=== PATIENT | male | born 1970 | race Caucasian/White ===

== ENCOUNTER 2018-07-01 19:30 | Emergency (ER) | payer BC ==
[~2018-07-01] VITALS: Ht 175.3 cm; Wt 95.3 kg
[2018-07-01] MEDS ORDERED: ONDANSETRON PF 4 MG/2 ML VIAL. IV ONE (20:15)
--- NOTE | 2018-07-01 20:24 | EKG ---
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
[2018-07-01 20:27] LABS: BASO % 0 % (0-3); EOS # 0.2 x10^3/uL (0.0-0.7); EOS % 3 % (0-3); HEMATOCRIT 44.7 % (39.0-53.0); HEMOGLOBIN 15.4 g/dL (13.0-17.5); LYMPH % 33 % (24-48); MEAN CORPUSCULAR HEMOGLOBIN 31 pg (25-35); MEAN CORPUSCULAR HGB CONC 35 g/dL (31-37); MEAN CORPUSCULAR VOLUME 88 fL (79-100); MONO # 0.6 x10^3/uL (0.0-1.1); MONO % 10 % (0-9); NEUT # 3.4 x10^3uL (1.8-7.7); NEUT % 54 % (31-73); PLATELET COUNT 201 x10^3/uL (140-400); RED BLOOD COUNT 5.06 x10^6/uL (4.30-5.70); RED CELL DISTRIBUTION WIDTH 13.5 % (11.5-14.5); WHITE BLOOD COUNT 6.2 x10^3/uL (4.0-11.0)
[2018-07-01 20:42] LABS: CALCIUM 9.2 mg/dL (8.5-10.1); GFR 80.1; POTASSIUM 3.7 mmol/L (3.5-5.1)
[2018-07-01 20:48] LABS: ALBUMIN 4.2 g/dL (3.4-5.0); ALBUMIN/GLOBULIN RATIO 1.2 (1.0-1.7); TOTAL BILIRUBIN 0.4 mg/dL (0.2-1.0); TOTAL PROTEIN 7.6 g/dL (6.4-8.2)
--- NOTE | 2018-07-01 20:56 | RAD ---
Single view chest dated 07/01/2018. No comparison available. Clinical indication: Chest pain. FINDINGS: Single upright portable exam performed. Heart and mediastinal contours within normal limits. Lungs are somewhat hypoinflated but otherwise clear. No consolidation or pleural effusion. Minimal linear bands of increased density at both lung bases, likely scar or atelectasis. IMPRESSION: No acute radiographic abnormality. Electronically signed by: Sherif Delgado MD (07/01/2018 8:52 PM) [facility]
[2018-07-01] MEDS ORDERED: FAMOTIDINE 20 MG/2 ML VIAL IVP ONE (21:15)
[2018-07-01] MEDS ORDERED: diphenhydrAMINE HCL 25 MG CAPSULE PO ONE (21:15)
[2018-07-01] MEDS ORDERED: FAMO-63 PO (21:20)
--- NOTE | 2018-07-01 21:20 | PHYS DOC ---
Past Medical History Past Medical History: High Cholesterol, Heart Disease, Hypothyroid Past Surgical History: Appendectomy Additional Past Surgical Histo: back and knee surgery Alcohol Use: None Drug Use: None Adult General Chief Complaint Chief Complaint: DIZZY/LIGHT HEADED HPI HPI Patient is a 47 year old male with history of peanut and egg allergy who presents with chest tightness, radiating to his left shoulder, burning in his arms and throat tingling after ingesting pancakes covered in peanut butter earlier this evening. No shortness of breath, wheezing. Patient does report nausea. No orolingual swelling. No other acute symptoms or complaints. Of note, patient has had prior cheek reactions after ingesting peanut butter and with the flu vaccination. Past medical history history significant for hypertension, dyslipidemia. Patient is a nonsmoker. Denies family history of coronary disease. [] Review of Systems Review of Systems Review symptoms as per history of present illness. All other review symptoms are negative. All other systems were reviewed and found to be within normal limits, except as documented in this note. Current Medications Current Medications Current Medications Medications (Trade) Dose Ordered Sig/Shweta Start Time Stop Time Status Last Admin Dose Admin Diphenhydramine HCl (Benadryl) 50 mg 1X ONCE 07/01/18 21:15 07/01/18 21:16 UNV Famotidine (Pepcid Vial) 40 mg 1X ONCE 07/01/18 21:15 07/01/18 21:16 UNV Lorazepam (Ativan) 1 mg 1X ONCE 07/01/18 20:15 07/01/18 20:16 DC 07/01/18 20:26 1 MG Ondansetron HCl (Zofran) 4 mg 1X ONCE 07/01/18 20:15 07/01/18 20:16 DC 07/01/18 20:26 4 MG Allergies Allergies Allergies Coded Allergies Type Severity Reaction Last Updated Verified egg Allergy Severe Anaphylaxis 07/01/18 Yes peanut Allergy Mild Itching 07/01/18 Yes Physical Exam Physical Exam Constitutional: Well developed, well nourished, no acute distress, non-toxic appearance. [] HENT: Normocephalic, atraumatic, bilateral external ears normal, oropharynx moist, no oral exudates, nose normal. [] Eyes: PERRLA, EOMI, conjunctiva normal, no discharge. [] Neck: Normal range of motion, no tenderness, supple, no stridor. [] Cardiovascular:Heart rate regular rhythm, no murmur [] Lungs & Thorax: Bilateral breath sounds clear to auscultation. [] Abdomen: Bowel sounds normal, soft, no tenderness. [] Skin: Warm, dry. [] Back: No tenderness. [] Extremities: No tenderness, no cyanosis, no clubbing, ROM intact, no edema. [] Neurologic: Alert and oriented X 3, normal motor function, normal sensory function, no focal deficits noted. [] Psychologic: Affect normal, judgement normal, mood normal. [] Current Patient Data Vital Signs Vital Signs Date Time Temp Pulse Resp B/P (MAP) Pulse Ox O2 Delivery O2 Flow Rate FiO2 07/01/18 19:36 98.1 75 15 120/78 (92) 96 Room Air 96.0 98.1 Lab Values Laboratory Tests Test 07/01/18 19:55 White Blood Count 6.2 x10^3/uL (4.0-11.0) Red Blood Count 5.06 x10^6/uL (4.30-5.70) Hemoglobin 15.4 g/dL (13.0-17.5) Hematocrit 44.7 % (39.0-53.0) Mean Corpuscular Volume 88 fL (79-100) Mean Corpuscular Hemoglobin 31 pg (25-35) Mean Corpuscular Hemoglobin Concent 35 g/dL (31-37) Red Cell Distribution Width 13.5 % (11.5-14.5) Platelet Count 201 x10^3/uL (140-400) Neutrophils (%) (Auto) 54 % (31-73) Lymphocytes (%) (Auto) 33 % (24-48) Monocytes (%) (Auto) 10 % (0-9) H Eosinophils (%) (Auto) 3 % (0-3) Basophils (%) (Auto) 0 % (0-3) Neutrophils # (Auto) 3.4 x10^3uL (1.8-7.7) Lymphocytes # (Auto) 2.0 x10^3/uL (1.0-4.8) Monocytes # (Auto) 0.6 x10^3/uL (0.0-1.1) Eosinophils # (Auto) 0.2 x10^3/uL (0.0-0.7) Basophils # (Auto) 0.0 x10^3/uL (0.0-0.2) Sodium Level 139 mmol/L (136-145) Potassium Level 3.7 mmol/L (3.5-5.1) Chloride Level 100 mmol/L (98-107) Carbon Dioxide Level 27 mmol/L (21-32) Anion Gap 12 (6-14) Blood Urea Nitrogen 19 mg/dL (8-26) Creatinine 1.0 mg/dL (0.7-1.3) Estimated GFR (Cockcroft-Gault) 80.1 BUN/Creatinine Ratio 19 (6-20) Glucose Level 115 mg/dL (70-99) H Calcium Level 9.2 mg/dL (8.5-10.1) Total Bilirubin 0.4 mg/dL (0.2-1.0) Aspartate Amino Transferase (AST) 31 U/L (15-37) Alanine Aminotransferase (ALT) 52 U/L (16-63) Alkaline Phosphatase 66 U/L (46-116) Troponin I Quantitative < 0.017 ng/mL (0.000-0.055) Total Protein 7.6 g/dL (6.4-8.2) Albumin 4.2 g/dL (3.4-5.0) Albumin/Globulin Ratio 1.2 (1.0-1.7) Lipase 273 U/L (73-393) Laboratory Tests 07/01/18 19:55 Laboratory Tests 07/01/18 19:55 EKG EKG [EKG: Normal sinus rhythm, rate 72, left anterior fascicular block. Nonspecific ST changes, interpretation limited by artifact.] Radiology/Procedures Radiology/Procedures [Chest x-ray: No acute abnormalities.] Course & Med Decision Making Course & Med Decision Making Pertinent Labs and Imaging studies reviewed. (See chart for details) [Patient's symptoms coincide with ingestion peanut butter with known peanut allergy. No oral pharyngeal swelling, shortness of air wheezing. Cardiac markers are negative. Pepcid and Benadryl given. Patient symptoms resolved and requesting discharge home. Patient admonished not to ingest peanut or egg products again in the future. He is otherwise encouraged to follow up with his primary care physician. Return precautions reviewed.] Dragon Disclaimer Dragon Disclaimer This electronic medical record was generated, in whole or in part, using a voice recognition dictation system. Departure Departure Impression: Primary Impression: Chest pain Additional Impression: Allergic reaction Disposition: 01 HOME, SELF-CARE Condition: GOOD Referrals: AKILAH BENAVIDES (PCP) Patient Instructions: Chest Pain (Nonspecific), Drug Allergy, [id number] Additional Instructions: You were evaluated in the emergency department for chest pain. EKG lab and imaging studies were performed and are nondiagnostic. The exact cause of your symptoms has not been determined and heart related causes of chest pain have not been ruled out. Please continue daily aspirin and Pepcid twice daily avoid all future eggs and Peanuts product exposure. Follow-up with your primary care physician in the next 2-3 days for reevaluation. Return to the ED if new or worsening symptoms. Scripts Famotidine (PEPCID) 20 Mg Tablet 20 MG PO BID, #30 TAB Prov: REDD MARTINEZ DO 07/01/18 Problem Qualifiers REDD MARTINEZ DO Jul 01, 2018 21:20
[2018-07-01 22:48] VITALS: BP 124/76
== END 2018-07-01 22:50 | disposition home or self-care (01) ==
LOC: ER 19:30
DX: T78.1XXA Other adverse food reactions, not elsewhere classified, initial encounter (principal); R07.89 Other chest pain; I44.4 Left anterior fascicular block; E78.00 Pure hypercholesterolemia, unspecified; E03.9 Hypothyroidism, unspecified; I11.9 Hypertensive heart disease without heart failure; E78.5 Hyperlipidemia, unspecified; Z91.010 Allergy to peanuts; Z91.012 Allergy to eggs; X58.XXXA Exposure to other specified factors, initial encounter
CPT/HCPCS: 36415; 71045; 80053; 83690; 84484; 85025; 93005; 96374; 96375; 99285; J2060; J2405; J3490; Q0163